=== PATIENT | female | born 1975 | race African-American/Black ===

== ENCOUNTER 2025-08-10 13:11 | Emergency (ER) | payer MEDICAID ==
[~2025-08-10] VITALS: Ht 170.2 cm; Wt 72.7 kg
[2025-08-10 13:46] VITALS: BP 158/93; PULSE 85; RESP 18; TEMP 97.8; O2SAT 98
[2025-08-10 14:13] LABS: Albumin 4.6 g/dL (3.2-4.8); Alkaline Phosphatase 88 U/L (46-116); Anion Gap 11 (5-15); Calcium 9.5 mg/dL (8.7-10.4); Carbon Dioxide 29 mmol/L (20-31); Chloride 106 mmol/L (98-107); Glucose 94 mg/dL (74-106); Total Protein 7.8 g/dL (5.7-8.2)
[2025-08-10 14:14] LABS: Bilirubin, Total 0.4 mg/dL (0.2-1.0)
[2025-08-10 14:15] LABS: Alanine Aminotransferase < 9 U/L (7-40); BUN/Creatinine Ratio 7.0 (10.0-20.0); Blood Urea Nitrogen < 5 mg/dL (9-23); Potassium 3.1 mmol/L (3.5-5.1); Sodium 146 mmol/L (136-145)
[2025-08-10] MEDS ORDERED: POTA-36 PO (14:29)
--- NOTE | 2025-08-10 14:29 | ED.PDOC ---
History of Present Illness HPI Comments 50-YEAR-OLD FEMALE PRESENTS TO THE ER WITH A CHIEF COMPLAINT OF ABDOMINAL PAIN (LOW POTASSIUM LEVELS). PATIENT REPORTS ON HAVING A RECENT POTASSIUM MEASUREMENT OF 3.0 MEQ/L. THE PATIENT IS NOT CURRENTLY TAKING ANY MEDICATIONS AND DENIES ANY NEW MEDICATIONS. THE PATIENT'S DIET IS DESCRIBED PRETTY GOOD. THE PATIENT DENIES ANY NUMBNESS, TINGLING, FACIAL PAIN, CHEST PAIN OR SOB. AN EKG WAS NOT PERFORMED TODAY. DENIES ANY OTHER SYMPTOMS AT THIS TIME. Chief Complaint: Abnormal LAB's Time Seen by MD: 14:30 Primary Care Provider: NONE Reviewed Notes: Nurses Notes, Medications, Allergies Allergies: Coded Allergies: NO KNOWN ALLERGIES (Unverified , 08/03/15) Home Meds Active Scripts Potassium Chloride (POTASSIUM CHLORIDE CR) 10 Meq Tb, 1 TAB PO BID for 10 Days, #20 TAB 0 Refills Prov:YENNY CORMIER NP 08/10/25 Information Source: Patient Mode of Arrival: Ambulatory Severity: Moderate Timing: Days Duration: Since onset, Days Prehospital treatment: None Past Medical History PAST MEDICAL HISTORY: Denies Surgical History: Tubal Ligation CENTRIFUGE SEPARATOR TENDER History: No Pertinent CENTRIFUGE SEPARATOR TENDER History Family History Family History: Reviewed,noncontributory to illness, Unknown Social History Smoker: Cigarettes Alcohol: Occasionally Drugs: Denies Drug Use Lives In: Home Constitutional: reports: others (ABNORMAL LABS); denies: chills, diaphoresis, fatigue, fever, malaise, sweats, weakness EENTM: denies: blurred vision, double vision, ear bleeding, ear discharge, ear drainage, ear pain, ear ringing, eye pain, eye redness, hearing loss, mouth pain, mouth swelling, nasal discharge, nose bleeding, nose congestion, nose pain, photophobia, tearing, throat pain, throat swelling, voice changes, others Respiratory: denies: cough, hemoptysis, orthopnea, SOB at rest, shortness of breath, SOB with excertion, stridor, wheezing, others Cardiovascular: denies: chest pain, dizzy spells, diaphoresis, Dyspnea on exertion, edema, irregular heart beat, left arm pain, lightheadedness, palpitations, PND, syncope, others Gastrointestinal: denies: abdomen distended, abdominal pain, blood streaked bowels, constipated, diarrhea, dysphagia, difficulty swallowing, hematemesis, melena, nausea, poor appetite, poor fluid intake, rectal bleeding, rectal pain, vomiting, others Genitourinary: denies: abnormal vagina bleeding, burning, dyspareunia, dysuria, flank pain, frequency, hematuria, incontinence, pain, , vagina discharge, urgency, others Neurological: denies: dizziness, fainting, headache, left sided numbness, left sided weakness, numbness, paresthesia, pre-existing deficit, right sided numbness, right sided weakness, seizure, speech problems, tingling, tremors, weakness, others Musculoskeletal: denies: back pain, gout, joint pain, joint swelling, muscle pain, muscle stiffness, neck pain, others Integumetry: denies: bruises, change in color, change in hair/nails, dryness, laceration, lesions, lumps, rash, wounds, others Allergic/Immunocompromised: denies: Difficulty Healing, Frequent Infections, Hives, Itching, others Hematologic/Lymphatic: denies: anemia, blood clots, easy bleeding, easy bruising, swollen glands, others Endocrine: denies: excessive hunger, excessive sweating, excessive thirst, excessive urination, flushing, intolerance to cold, intolerance to heat, unexplained weight gain, unexplained weight loss, others Psychiatric: denies: anxiety, bipolar disorder, depression, hopeless, panic disorder, schizophrenia, sleepless, suicidal, others All Other Systems: Reviewed and Negative Physical Exam General Appearance: No Apparent Distress, Normal HEENT: Normal ENT Inspection, Pharynx Normal, TMs Normal Neck: Full Range of Motion, Non-Tender, Normal, Normal Inspection Respiratory: Chest Non-Tender, Lungs Clear, No Accessory Muscle Use, No Respiratory Distress, Normal Breath Sounds Cardiovascular: No Edema, No JVD, No Murmur, No Gallop, Normal Peripheral Pulses, Regular Rate/Rhythm Breast Exam: Deferred Gastrointestinal: No Organomegaly, Non Tender, No Pulsatile Mass, Normal Bowel Sounds, Soft Genitalia: Deferred Pelvic: Deferred Rectal: Deferred Extremities: No calf tenderness, Normal capillary refill, Normal inspection, Normal range of motion, Non-tender, No pedal edema Musculoskeletal : Apperance: Normal Neurologic: Alert, front office java developer II-XII nml as Tested, No Motor Deficits, Normal Affect, Normal Mood, No Sensory Deficits Cerebellar Function: Normal Reflexes: Normal Skin: Dry, Normal Color, Warm Lymphatic: No Adenopathy Was a procedure done? Was a procedure done?: No Differential Dx Considerations may include: ELECTROLYTE IMBALANCE, HYPOGLYCEMIA, X-Ray, Labs, Meds, VS Vital Signs Date Time Temp Pulse Resp B/P (MAP) Pulse Ox O2 Delivery O2 Flow Rate FiO2 08/10/25 13:46 97.8 85 18 158/93 (114) 98 97.8 08/10/25 13:46 85 18 98 Room Air 08/10/25 13:13 98.0 80 16 147/93 98 98.0 Lab Test 08/10/25 13:40 Range/Units Sodium Level 146 H 136-145 mmol/L Potassium Level 3.1 L 3.5-5.1 mmol/L Chloride Level 106 98-107 mmol/L Carbon Dioxide Level 29 20-31 mmol/L Anion Gap 11 5-15 Blood Urea Nitrogen < 5 L 9-23 mg/dL Creatinine 0.71 0.550-1.02 mg/dL Glomerular Filtration Rate Calc 104 >90 mL/min BUN/Creatinine Ratio 7.0 L 10.0-20.0 Serum Glucose 94 74-106 mg/dL Calcium Level 9.5 8.7-10.4 mg/dL Total Bilirubin 0.4 0.2-1.0 mg/dL Aspartate Amino Transferase (AST) 15 13-40 U/L Alanine Aminotransferase (ALT) < 9 7-40 U/L Alkaline Phosphatase 88 46-116 U/L Total Protein 7.8 5.7-8.2 g/dL Albumin 4.6 3.2-4.8 g/dL X-Ray, Labs, Meds, VS Comment 50-YEAR-OLD FEMALE PRESENTS TO THE ER WITH A CHIEF COMPLAINT OF ABDOMINAL PAIN (LOW POTASSIUM LEVELS). PATIENT ARRIVES ALERT AND ORIENTED, ABC'S INTACT, AFEBRILE, VITAL SIGNS STABLE, SATURATING WELL IN ROOM AIR Patient is stable for discharge at this time. External notes reviewed. Test results and diagnostic imaging interpreted. All diagnostic findings, discharge care, education and instructions provided Follow-up with PCP in 2 to 3 days Patient verbalized understanding and agreed to treatment plan Vital signs stable, afebrile, no acute distress noted Patient ambulatory with strong steady gait Advised to return precautions for any new or worsening symptoms, return to ER immediately for re-evaluation Patient is aware that the purpose of this visit was for an acute medical emerg ency requiring emergent stabilization. Chronic conditions, including malignancies have not been ruled out. Patient is instructed to follow up with PCP as directed and discharge instructions for continued care and workup. If unable to arrange follow-up, patient is to return to the emergency department for reassessment. Patient (parent or legal guardian if applicable) was given ve rbal and written discharge instructions and acknowledges understanding. ADDITIONAL MDM REVIEW OF EXTERNAL, NON-ED RECORDS: EXTERNAL RECORDS REVIEWED. DISCUSSION WITH INDEPENDENT HISTORIAN (EMS, FAMILY) HISTORY OBTAINED FROM THE PATIENT/PARENTS (IF APPLICABLE) AT BEDSIDE CHRONIC CONDITIONS AFFECTING CARE: NONE SOCIAL DETERMINANTS OF HEALTH AFFECTING CARE: NONE CONSIDERATION OF ADMISSION (OBSERVATION OR ADMISSION): I CONSIDERED ESCALATION OF CARE TO ADMISSION FOR THIS PATIENT, HOWEVER GIVEN THE REASSURING WORKUP, THE PATIENT IS SAFE FOR OUTPATIENT MANAGEMENT. DISCUSSION WITH THE RADIOLOGY: NO TESTS CONSIDERED BUT NOT PERFORMED: PRESCRIPTION MEDICATION CONSIDERED BUT NOT GIVEN: 12 LEAD EKG INTERPRETATION: Time of 1ST Reevaluation: 15:00 Reevaluation 1ST: Unchanged Patient Education/Counseling: Diagnosis, Treatment, Prognosis Family Education/Counseling: No Family Present SEPSIS Sepsis Screen Date sepsis recognized/suspect: Aug 10, 2025 Time Sepsis recognized/suspect: 1313 Recent Procedure: No On Antibiotic Therapy: No Respiratory Rate >20: No Heart Rate >90: No Temp<36 C (96.8 F) or >38.3 C: No SBP <90 or MAP <65 mmHG: No New Acute Mental Status Change: No Is the patient on CPAP, BIPAP,: No Vital Signs Date Time Temp Pulse Resp B/P (MAP) Pulse Ox O2 Delivery O2 Flow Rate FiO2 08/10/25 13:46 97.8 85 18 158/93 (114) 98 97.8 08/10/25 13:46 85 18 98 Room Air 08/10/25 13:13 98.0 80 16 147/93 98 98.0 Departure 1 Departure Time of Disposition: 15:01 Impression: Primary Impression: Hypokalemia Disposition: 01 HOME / SELF CARE / HOMELESS Condition: Stable e-Prescriptions Potassium Chloride (POTASSIUM CHLORIDE CR) 10 Meq Tb 1 TAB PO BID for 10 Days, #20 TAB 0 Refills Prov: YENNY CORMIER NP 08/10/25 Discharged With: Self Critical Care Note Critical Care Time?: No Stability Stability form required: No Heart Score Heart Score: Heart Score Response (Comments) Value History N/A 0 EKG N/A 0 Age <45 0 Risk Factors N/A 0 Troponin N/A 0 Total 0 I personally scribed for YENNY CORMIER NP ([email or web address]) on 08/10/25 at 14:29. Electronically submitted by Mohamud Rahman ([email or web address]). I personally scribed for YENNY CORMIER NP ([email or web address]) on 08/10/25 at 14:31. Electronically submitted by Mohamud Rahman ([email or web address]). YENNY CORMIER NP Aug 10, 2025 14:29
== END 2025-08-10 14:40 | disposition home or self-care (01) ==
LOC: ER 13:11
DX: E87.6 Hypokalemia (principal); F17.210 Nicotine dependence, cigarettes, uncomplicated; Z79.899 Other long term (current) drug therapy; Z98.51 Tubal ligation status
CPT/HCPCS: 36415; 80053